=== PATIENT | male | born 1955 | race Caucasian/White ===

== ENCOUNTER → 2016-12-08 | Outpatient (CLI) | payer MEDICARE, OTHER ==
--- NOTE | 2016-12-08 15:13 | REP ---
MR ORBITS WITHOUT AND WITH CONTRAST: HISTORY: Chronic lymphocytic leukemia. CONTRAST: ProHance 20 mL A mass isointense on T1 and T2-weighted images is present in the left orbit. There is moderate heterogeneous enhancement with contrast. On the mass measures 4.6 cm in transverse by 4.1 cm in AP by 4.4 cm in cephalocaudal dimensions. There is medial extension into the left ethmoid sinus and nasal passage. There is inferior extension into the left maxillary sinus. There is superior extension through the cribriform plate into the left anterior cranial fossa. There is anterior extension into the subcutaneous tissue anteromedial to the left globe. There is lateral displacement of the left medial and inferior rectus muscles. The left globe , optic nerve , superior and lateral rectus muscles are normal in appearance. Mucosal thickening is present in the left frontal sinus. The remaining sinuses are clear. Contents of the right orbit are normal. 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 IMPRESSION: There is an enhancing soft tissue mass in the medial left orbit with extension into the left ethmoid and maxillary sinuses, left nasal passage, and left anterior cranial fossa as described above. Signed by Alexy Hodgson MD 12/08/2016 03:22 P
== END ==
LOC: M RAD 10:55
PROVIDERS: ATTEND Internal Medicine
DX: C91.10 Chronic lymphocytic leukemia of B-cell type not having achieved remission (principal)
CPT/HCPCS: 70543; A9576